=== PATIENT | male | born 1960 ===

== ENCOUNTER 2018-08-15 13:43 | Emergency (ER) | payer OTHER ==
[~2018-08-15] VITALS: Ht 165.1 cm; Wt 82.6 kg
[2018-08-15 13:50] VITALS: BP 116/71
--- NOTE | 2018-08-15 13:50 | NUR ---
ED Nurse Note: brought in by [facility] due to hypotension. Pt was picked up at a grocery store that he stated he was dizzy and have headahce/neck pain. Per pt that he may have taken a double dose of BP med today. At the arrival of ER, he denies headache nor any pain. A/Ox4. Pt states he feels better after receiving 500ml NaCL from EMS.
--- NOTE | 2018-08-15 13:52 | NUR ---
ED Nurse Note: PER PT, HE TAKES LISINOPRIL AND ATORVASTATIN, UNKNOWN DOSE.
--- NOTE | 2018-08-15 14:10 | NUR ---
ED Nurse Note: BLOOD SPECIMENS AND URINE COLLECTED AND SENT DOWN TO THE LAB.
[2018-08-15 14:43] LABS: APPEARANCE,URINE CLEAR; BILIRUBIN, URINE NEGATIVE (NEGATIVE); COLOR,URINE PALE YELLOW; GLUCOSE, URINE (UA) NEGATIVE (NEGATIVE); KETONES,URINE NEGATIVE (NEGATIVE); LEUKOCYTE ESTERASE ,URINE NEGATIVE (NEGATIVE); NITRITE,URINE NEGATIVE (NEGATIVE); PH,URINE 5 (4.5-8.0); PROTEIN,URINE 1+ (NEGATIVE); UROBILINOGEN,URINE NORMAL MG/DL (0.0-1.0)
[2018-08-15 14:44] LABS: BASOPHILS % (AUTO) 1.9 % (0.0-2.0); EOSINOPHILS % (AUTO) 5.8 % (0.0-3.0); HEMATOCRIT 34.6 % (42.0-52.0); HEMOGLOBIN 10.7 G/DL (14.2-18.0); LYMPHOCYTES % (AUTO) 19.3 % (20.0-45.0); MEAN CORPUSCULAR VOLUME 87 FL (80-99); MONOCYTES % (AUTO) 8.3 % (1.0-10.0); NEUTROPHILS % (AUTO) 64.8 % (45.0-75.0); PLATELET COUNT 191 K/UL (150-450); RED BLOOD COUNT 3.99 M/UL (4.70-6.10); RED CELL DISTRIBUTION WIDTH 15.5 % (11.6-14.8); WHITE BLOOD COUNT 6.7 K/UL (4.8-10.8)
[2018-08-15 15:00] LABS: ANION GAP 11 mmol/L (5-15); BLOOD UREA NITROGEN 40 mg/dL (7-18); CALCIUM 8.1 MG/DL (8.5-10.1); CARBON DIOXIDE 26 MMOL/L (21-32); CHLORIDE 112 MMOL/L (98-107); CREATININE 2.2 MG/DL (0.55-1.30); POTASSIUM 4.5 MMOL/L (3.5-5.1); SODIUM 148 MMOL/L (136-145)
[2018-08-15 15:10] LABS: ALANINE AMINOTRANSFERASE 112 U/L (12-78); ALBUMIN 3.2 G/DL (3.4-5.0); ALBUMIN/GLOBULIN RATIO 0.8 (1.0-2.7); ALKALINE PHOSPHATASE 61 U/L (46-116); ASPARTATE AMINO TRANSFERASE 68 U/L (15-37); BILIRUBIN,TOTAL 0.4 MG/DL (0.2-1.0); CKMB 13.5 NG/ML (0.0-3.6); CREATINE KINASE 421 U/L (26-308)
--- NOTE | 2018-08-15 15:12 | Diagnostic Imaging Report ---
EXAM: XR Chest, 2 Views CLINICAL HISTORY: DIZZY TECHNIQUE: Frontal and lateral views of the chest. COMPARISON: No relevant prior studies available. FINDINGS: Lungs: Right upper lung opacity, scarring versus infiltrate. Pleural space: Unremarkable. No pneumothorax. Heart: Mild cardiomegaly. Mediastinum: Tortuous aorta. Bones/joints: Unremarkable. IMPRESSION: Right upper lobe opacity, scarring versus airspace infiltrate. Correlate for any symptoms of pneumonia. Mild cardiomegaly.
[2018-08-15 16:32] VITALS: BP 124/81
--- NOTE | 2018-08-15 16:33 | NUR ---
ED Nurse Note: Pt made aware of the transfer. Pt denies CP nor any SOB at this time. Lab contacted to run PTT.
--- NOTE | 2018-08-15 16:58 | NUR ---
ED Nurse Note: Heparin 5000U IVP given and heparin drip started at 1658- 12U/kg/hr per ERMD's order. Pt denies any CP nor SOB at this time.
[2018-08-15] MEDS ORDERED: Heparin 5000 units/ml inj IV ONE (17:00)
[2018-08-15] MEDS ORDERED: Heparin 25,000u/D5W 500ml 500 ML IV SCH (17:00)
--- NOTE | 2018-08-15 17:02 | Emergency Room Report ---
History of Present Illness General Chief Complaint: Dizziness Source: Patient Present Illness HPI 57-year-old male presents ED for evaluation. Brought in by EMS. Complaining of dizziness which started today. Denies LOC. Noted be hypotensive in the field. Given IV fluids. On arrival patient states he feels better. States that he takes his blood pressure medication in the evenings. States he's been compliant with his medication. Has been taking ibuprofen for some neck and back pain. Instructed return as of ibuprofen this morning but believes he could have accidentally taken another dose of his lisinopril. Denies chest pain or shortness of breath. Denies headache or blurry vision. No other aggravating relieving factors. Denies any other associated symptoms Allergies: Coded Allergies: No Known Allergies (Unverified , 08/15/18) Patient History Past Medical History: HTN Past Surgical History: none Pertinent Family History: none Social History: Denies: smoking, alcohol use, drug use Immunizations: UTD Reviewed Nursing Documentation: PMH: Agreed; PSxH: Agreed Nursing Documentation-PMH Past Medical History: No History, Except For Hx Hypertension: Yes Review of Systems All Other Systems: negative except mentioned in HPI Physical Exam Vital Signs Date Time Temp Pulse Resp B/P (MAP) Pulse Ox O2 Delivery O2 Flow Rate FiO2 08/15/18 13:41 97.9 62 20 97/57 100 Room Air Sp02 EP Interpretation: reviewed, normal General Appearance: no apparent distress, alert, GCS 15, non-toxic Head: normocephalic, atraumatic Eyes: bilateral eye normal inspection, bilateral eye PERRL ENT: hearing grossly normal, normal pharynx, no angioedema, normal voice Neck: full range of motion, supple/symm/no masses Respiratory: chest non-tender, lungs clear, normal breath sounds, speaking full sentences Cardiovascular #1: regular rate, rhythm, no edema Cardiovascular #2: 2+ carotid (R), 2+ carotid (L), 2+ radial (R), 2+ radial (L) , 2+ dorsalis pedis (R), 2+ dorsalis pedis (L) Gastrointestinal: normal bowel sounds, non tender, soft, non-distended, no guarding, no rebound Rectal: deferred Genitourinary: normal inspection, no CVA tenderness Musculoskeletal: back normal, gait/station normal, normal range of motion, non- tender Neurologic: alert, oriented x3, responsive, motor strength/tone normal, sensory intact, speech normal Psychiatric: judgement/insight normal, memory normal, mood/affect normal, no suicidal/homicidal ideation Reflexes: 3+ bicep (R), 3+ bicep (L), 3+ tricep (R), 3+ tricep (L), 3+ knee (R) , 3+ knee (L) Skin: normal color, no rash, warm/dry, well hydrated Lymphatic: no adenopathy Procedures Critical Care Time Critical Care Time i. I feel this is a highly complex case requiring extensive working including EKG/Rhythm strip, Xray/CT/US, Blood/urine lab work, repeat exams while in ED, and administration of strong opiates/narcotics for pain control, admission to hospital or close patient follow up. Total time: 45 min bedside evaluation and treatment excludes procedures (EKG). Reason for critical care: Dizziness, elevated troponin Possible complications: hypotension, hypertension, WA, shock, arrhythmias, metabolic acidosis, end organ damage, respiratory failure. Interventions: Labs, IV fluids, EKG, chest x-ray, aspirin, consultation with cardiology, heparin bolus and heparin drip, transfer to [facility] Course: Patient presenting with dizziness, hypotension in the field. No chest pain. EKG shows deep T-wave inversions in multiple leads. Troponin 0.201. Denies chest pain. Discussed case with Dr Mosley who recommends patient be transferred to [facility]. Heparin bolus and heparin drip started Consultations: nursing staff, EMS, family Performed by: Dr Huang Tolerated well condition = critical j. because of unstable vital signs this patient had a condition that could potentially threaten life or limb. I feel this is a critical patient who required my full attention while patient was considered critical. Total Critical Care Time excluding procedures was greater than 35 minutes Medical Decision Making Diagnostic Impression: Primary Impression: Dizziness Additional Impression: Elevated troponin ER Course Hospital Course 57-year-old male presents with dizziness, hypotension. History of hypertension Differential diagnoses include: WA/unstable angina, contusion, muscle strain, PTX, rib fracture Clinical course Patient placed on stretcher. After initial history and physical I ordered labs , IV fluids, UA, EKG and chest x-ray labs reviewed- no leukocytosis, electrolytes ok, trop 0.201 EKG- pronounced T-wave inversions in multiple leads. No ST elevations or depressions Chest x-ray- no acute process given aspirin. Discussed with Dr. Mosley (cardiology); he believes patient will require catheterization and transferred to [facility]. He will be the accepting physician at [facility]. Heparin bolus and heparin drip started discussed findings with patient I. I feel this is a highly complex case requiring extensive working including EKG/Rhythm strip, Xray/CT/US, Blood/urine lab work, repeat exams while in ED, and administration of strong opiates/narcotics for pain control, admission to hospital or close patient follow up. Diagnosis - dizziness, elevated troponin Transferred [facility] critical condition Labs Test 08/15/18 14:30 White Blood Count 6.7 K/UL (4.8-10.8) Red Blood Count 3.99 M/UL (4.70-6.10) Hemoglobin 10.7 G/DL (14.2-18.0) Hematocrit 34.6 % (42.0-52.0) Mean Corpuscular Volume 87 FL (80-99) Mean Corpuscular Hemoglobin 26.9 PG (27.0-31.0) Mean Corpuscular Hemoglobin Concent 31.0 G/DL (32.0-36.0) Red Cell Distribution Width 15.5 % (11.6-14.8) Platelet Count 191 K/UL (150-450) Mean Platelet Volume 9.1 FL (6.5-10.1) Neutrophils (%) (Auto) 64.8 % (45.0-75.0) Lymphocytes (%) (Auto) 19.3 % (20.0-45.0) Monocytes (%) (Auto) 8.3 % (1.0-10.0) Eosinophils (%) (Auto) 5.8 % (0.0-3.0) Basophils (%) (Auto) 1.9 % (0.0-2.0) Prothrombin Time 10.7 SEC (9.30-11.50) Prothromb Time International Ratio 1.0 (0.9-1.1) Activated Partial Thromboplast Time 30 SEC (23-33) Urine Color Pale yellow Urine Appearance Clear Urine pH 5 (4.5-8.0) Urine Specific [place] 1.020 (1.005-1.035) Urine Protein 1+ (NEGATIVE) Urine Glucose (UA) Negative (NEGATIVE) Urine Ketones Negative (NEGATIVE) Urine Blood Negative (NEGATIVE) Urine Nitrite Negative (NEGATIVE) Urine Bilirubin Negative (NEGATIVE) Urine Urobilinogen Normal MG/DL (0.0-1.0) Urine Leukocyte Esterase Negative (NEGATIVE) Urine RBC 0 /HPF (0 - 0) Urine WBC 0-2 /HPF (0 - 0) Urine Squamous Epithelial Cells Occasional /LPF Urine Bacteria Occasional /HPF (NONE) Urine Mucus Occasional /LPF Urine Trichomonas /HPF (NONE) Sodium Level 148 MMOL/L (136-145) Potassium Level 4.5 MMOL/L (3.5-5.1) Chloride Level 112 MMOL/L (98-107) Carbon Dioxide Level 26 MMOL/L (21-32) Anion Gap 11 mmol/L (5-15) Blood Urea Nitrogen 40 mg/dL (7-18) Creatinine 2.2 MG/DL (0.55-1.30) Estimat Glomerular Filtration Rate 31.0 mL/min (>60) Glucose Level 100 MG/DL (74-106) Calcium Level 8.1 MG/DL (8.5-10.1) Total Bilirubin 0.4 MG/DL (0.2-1.0) Aspartate Amino Transf (AST/SGOT) 68 U/L (15-37) Alanine Aminotransferase (ALT/SGPT) 112 U/L (12-78) Alkaline Phosphatase 61 U/L (46-116) Total Creatine Kinase 421 U/L (26-308) Creatine Kinase MB 13.5 NG/ML (0.0-3.6) Creatine Kinase MB Relative Index 3.2 Troponin I 0.201 ng/mL (0.000-0.056) Pro-B-Type Natriuretic Peptide 403 pg/mL (0-125) Total Protein 7.0 G/DL (6.4-8.2) Albumin 3.2 G/DL (3.4-5.0) Globulin 3.8 g/dL Albumin/Globulin Ratio 0.8 (1.0-2.7) EKG Diagnostic Results Rate: normal Rhythm: NSR ST Segments: other - deep Twave inversions in multiple leads ASA given to the pt in ED: Yes Rhythm Strip Diag. Results EP Interpretation: yes Rhythm: NSR, no PVC's, no ectopy Chest X-Ray Diagnostic Results Chest X-Ray Diagnostic Results : Chest X-Ray Ordered: Yes # of Views/Limited/Complete: 1 View Indication: Chest Pain EP Interpretation: Yes Interpretation: no consolidation, no effusion, no pneumothorax, no acute cardiopulmonary disease Impression: No acute disease Electronically Signed by: Electronically signed by Blas Huang MD Last Vital Signs Date Time Temp Pulse Resp B/P (MAP) Pulse Ox O2 Delivery O2 Flow Rate FiO2 08/15/18 16:32 70 14 124/81 99 Room Air 08/15/18 13:50 97.9 Status: improved Disposition: XFER SHT-TRM HOSP Condition: Critical Referrals: [facility],REFERRING (PCP) Blas Huang MD Aug 15, 2018 17:02
--- NOTE | 2018-08-15 19:06 | NUR ---
HAND-OFF: Report given to JUAN Tee. No s/s of distress.
--- NOTE | 2018-08-15 19:15 | NUR ---
ED Nurse Note: received report from RN Rin, pt VSS, NSR on residential monitor at this time, denies sob/cp/pain, pt aA&ox4, gcs=15, skin warm and dry, resp even and unlabored on RA, IV intact lori AC, Pt on heparin drip, will cont monitor. pending xfr to [facility].
[2018-08-15 19:30] VITALS: BP 134/64
--- NOTE | 2018-08-15 20:17 | NUR ---
ED Nurse Note: Report given to JUAN Bazzi at [facility], pending transfer. Pt denies any sob nor cp at this time, pt on heparin drip, will cont monitor. VSS.
[2018-08-15 21:30] VITALS: BP 145/68
--- NOTE | 2018-08-15 22:11 | NUR ---
ED Nurse Note: repeat troponin sent to lab.
--- NOTE | 2018-08-15 23:00 | NUR ---
ED Nurse Note: repeat aPTT sent.
[2018-08-15 23:10] VITALS: BP 127/86
--- NOTE | 2018-08-15 23:10 | NUR ---
ED Nurse Note: pt ambulance at the bedside, report given to waste transportation technician from [facility], pt going to [facility] for higher level of care, pt vss, resp even and unlabored on RA, denies cp/sob/pain at this time. all belongings sent w/ pt. iv intact and patent.
--- NOTE | 2018-08-15 23:40 | NUR ---
ED Nurse Note: correction: pt xfr at 2340.
[2018-08-16] MEDS ORDERED: Heparin 5000 units/ml inj IV SCH (00:15)
[2018-08-16] MEDS ORDERED: Heparin 25,000u/D5W 500ml 500 ML IV SCH (00:15)
== END 2018-08-15 23:40 | disposition short-term general hospital (02) ==
LOC: EDBD 13:43 → EMR 15:08 → CANBEDREQ 17:30 → EMR 23:40
DX: R42 Dizziness and giddiness (principal); I95.9 Hypotension, unspecified; R74.8 Abnormal levels of other serum enzymes; I10 Essential (primary) hypertension
CPT/HCPCS: 36415; 71045; 80053; 81003; 82550; 82553; 83880; 84484; 85025; 85610; 85730; 93005; 96361; 96365; 96375; 99291; J1644